=== PATIENT | female | born 1975 | race Caucasian/White ===

== ENCOUNTER 2017-02-20 17:13 | Emergency (ER) | payer OTHER ==
[~2017-02-20] VITALS: Ht 165.1 cm; Wt 85.7 kg
--- NOTE | ~2017-02-20 | CR126 ---
[facility] A Service of [facility] & [facility] RADIOLOGY TEXT RESULTS PATIENT: CIRO VILCHIS LOCATION: [facility] : 79 UNIT #: [id number] AGE: [address]: JULIANO CORTEZ APRN SEX: F ORDER DR: [id number] [facility] [address] [place], [place] [address] [id number] E MR#: [id number] Acc #: [id number] NAME: CIRO VILCHIS. : 1975 SEX: F STUDY DATE/TIME: 02/20/2017 18:38 UNIT: [facility] ROOM: STUDY DESCRIPTION: CR Foot Complete Min 3 View Lt Attending Physician: Juliano Cortez Aprn Ordering Physician: Mariajose Lea Pa-C Primary Care Physician: No Primary Care Physician MEDICAL IMAGING REPORT This report is preliminary unless electronic signature is present EXAM Left foot series 02/20/2017. HISTORY Trauma. Injured foot while mowing grass. Pin in foot on dorsal surface near fourth and fifth metatarsals. TECHNIQUE AP, lateral and oblique radiographs of the left foot are presented. COMPARISON 02/14/2013. FINDINGS No acute traumatic fracture or malalignment. Configuration of the distal first metatarsal bone suggests probable prior osteotomy and bunionectomy, now healed. Alternatively, there may be a prior healed traumatic fracture or dislocation. Correlate with history. The joint spaces are intact. No soft tissue defect, subcutaneous air or radiodense foreign body. Dictated by... Flavio Combs M.D. THIS IS AN ELECTRONICALLY VERIFIED REPORT Flavio Combs M.D. at 02/21/2017 4:57 PM CB/anabela TD: 02/21/2017 13:06 JOB #: [id number] MEDICAL IMAGING REPORT Page 1 of 1 COPY
[~2017-02-20 17:13] MED LIST: IBUPROFEN PO; IUD; PRISTIQ100 MG PO
== END 2017-02-20 20:47 | disposition home or self-care (01) ==
LOC: CED 17:13 → CFTX 17:13
DX: S96.912A Strain of unspecified muscle and tendon at ankle and foot level, left foot, initial encounter (principal); X50.1XXA Overexertion from prolonged static or awkward postures, initial encounter; Y92.009 Unspecified place in unspecified non-institutional (private) residence as the place of occurrence of the external cause; F32.9 Major depressive disorder, single episode, unspecified
CPT/HCPCS: 29540; 73630; 99283